=== PATIENT | female | born 1960 | race Caucasian/White ===

== ENCOUNTER → 2016-08-29 | Outpatient (CLI) | payer BC, OTHER | LOC: RAD 04:22 | DX: Z12.31 Encounter for screening mammogram for malignant neoplasm of breast (principal) ==

== ENCOUNTER → 2017-09-03 | Outpatient (CLI) | payer BC, OTHER | LOC: RAD 01:32 | DX: Z12.31 Encounter for screening mammogram for malignant neoplasm of breast (principal) ==

== ENCOUNTER → 2018-09-09 | Outpatient (CLI) | payer BC | LOC: RAD 02:31 | DX: Z12.31 Encounter for screening mammogram for malignant neoplasm of breast (principal) ==

== ENCOUNTER → 2019-11-23 | Outpatient (CLI) | payer BC | LOC: BC 08:53 | PROVIDERS: ATTEND Obstetrics & Gynecology | DX: Z12.31 Encounter for screening mammogram for malignant neoplasm of breast (principal) ==

== ENCOUNTER → 2020-12-13 | Outpatient (CLI) | payer BC | LOC: BC 08:52 | DX: Z12.31 Encounter for screening mammogram for malignant neoplasm of breast (principal) ==